=== PATIENT | male | born 1935 | race Caucasian/White ===

== ENCOUNTER 2018-11-12 19:38 | Emergency (ER) | payer MEDICARE ==
[~2018-11-12 19:38] MED LIST: ASPI-1197 PO; DIME50TA24 PO; INSREG SQ; LOSA100T58 PO; METR500T PO; NPH,100V11 SQ; OMEP20CA10 PO; SIMV40TA59 PO
[2018-11-12] MEDS ORDERED: SODIUM CHLORIDE 0.9% 500ML 500 ML IV ONE (19:56)
[2018-11-12] MEDS ORDERED: ONDANSETRON HCL 4 MG/2 ML VIAL ONE (19:56)
[2018-11-12 20:02] LABS: BASOPHILS % (AUTO) 0.5 % (0.0-5.0); EOSINOPHILS % (AUTO) 0.8 % (0.0-8.0); HEMATOCRIT 51.2 % (42-54); LYMPHOCYTES % (AUTO) 7.6 % (21.0-51.0); MEAN CORPUSCULAR HEMOGLOBIN 30.9 pg (27.0-33.0); MEAN CORPUSCULAR HGB CONC 34.3 g/dL (32.0-36.0); MEAN CORPUSCULAR VOLUME 90.2 fL (79-99); MONOCYTES % (AUTO) 7.8 % (3.0-13.0); NEUTROPHILS % (AUTO) 83.3 % (40.0-77.0); NUCLEATED RED BLOOD CELLS 0.1 % (0.0-0.19); PLATELET COUNT (AUTO) 191 K/uL (130-400); RED BLOOD CELL COUNT(AUTO) 5.68 MIL/uL (4.50-6.20); RED CELL DISTRIBUTION WIDTH 13.4 % (11.0-15.5)
[2018-11-12 20:12] LABS: CREATININE 1.3 mg/dL (0.5-1.5); POTASSIUM 3.7 mmol/L (3.5-5.1)
[2018-11-12 20:16] LABS: ALBUMIN 3.8 g/dL (3.5-5.0); BILIRUBIN,TOTAL 0.7 mg/dL (0.2-1.0)
[2018-11-12 21:38] LABS: APPEARANCE,URINE Clear (CLEAR); BILIRUBIN,URINE Negative (NEGATIVE); COLOR,URINE Yellow (YELLOW); GLUCOSE, URINE (UA) 250 mg/dL (NEGATIVE); KETONES,URINE Negative (NEGATIVE); LEUKOCYTE ESTERASE ,URINE Negative (NEGATIVE); NITRATE,URINE Negative (NEGATIVE); OCCULT BLOOD,URINE Negative (NEGATIVE); PH,URINE 5.5 (5.0-8.0); PROTEIN,URINE POS 2+ (NEGATIVE)
[2018-11-12 21:53] LABS: BACTERIA,URINE None Seen /HPF (None Seen); MUCUS,URINE Moderate LPF (None Seen); RBC,URINE None Seen /HPF (0-1); WBC,URINE None Seen /HPF (0-1)
== END 2018-11-12 23:29 | disposition home or self-care (01) ==
LOC: EDH 19:38
DX: R10.9 Unspecified abdominal pain (principal); R11.2 Nausea with vomiting, unspecified; E11.9 Type 2 diabetes mellitus without complications; Z85.46 Personal history of malignant neoplasm of prostate
CPT/HCPCS: 36415; 70450; 71045; 80053; 81001; 82150; 83690; 84484; 85025; 93005; 96374; 99284; J2405; J7040

== ENCOUNTER 2022-06-04 20:36 | Emergency (ER) | payer MEDICARE ==
[~2022-06-04] VITALS: Ht 172.7 cm; Wt 81.6 kg
[~2022-06-04 20:36] MED LIST changes: +ATOR40TA71 PO; +CARV6.25 PO; +CLOP75TA32 PO; +INSLAN SQ; -INSREG SQ; +INSU100V3 SQ; -LOSA100T58 PO; -METR500T PO; -NPH,100V11 SQ; -OMEP20CA10 PO; +OMEP20CA12 PO; -SIMV40TA59 PO
[2022-06-04 21:50] LABS: APPEARANCE,URINE TURBID (CLEAR); BILIRUBIN,URINE SMALL (NEGATIVE); COLOR,URINE RED (YELLOW); GLUCOSE, URINE (UA) 100 mg/dL (NEGATIVE); KETONES,URINE 5 mg/dL (NEGATIVE); LEUKOCYTE ESTERASE ,URINE MODERATE (NEGATIVE); NITRATE,URINE POSITIVE (NEGATIVE); OCCULT BLOOD,URINE MODERATE (NEGATIVE); PH,URINE 6.5 (5.0-8.0); PROTEIN,URINE >=300 mg/dL (NEGATIVE)
[2022-06-04 22:02] LABS: BACTERIA,URINE Rare /HPF (None Seen); RBC,URINE TNTC /HPF (0-1)
[2022-06-04 22:03] LABS: SQUAMOUS EPITHELIAL CELL,UR None Seen /HPF (0-2)
[2022-06-04 22:29] VITALS: BP 172/74
[2022-06-04] MEDS ORDERED: CEFTRIAXONE 1G VIAL IVP ONE (22:30)
[2022-06-04] MEDS ORDERED: LIDOCAINE HCL 1% 20 ML VIAL ONE (22:31)
[2022-06-05] MEDS ORDERED: LEVO750T68 PO ×2 (13:58)
== END 2022-06-04 23:19 | disposition home or self-care (01) ==
LOC: EDH 20:36
DX: T83.098A Other mechanical complication of other urinary catheter, initial encounter (principal); N39.0 Urinary tract infection, site not specified; R33.9 Retention of urine, unspecified; E11.9 Type 2 diabetes mellitus without complications; E78.00 Pure hypercholesterolemia, unspecified; I10 Essential (primary) hypertension; Z79.82 Long term (current) use of aspirin; Z79.899 Other long term (current) drug therapy; Z85.51 Personal history of malignant neoplasm of bladder; Z86.73 Personal history of transient ischemic attack (TIA), and cerebral infarction without residual deficits; Z87.440 Personal history of urinary (tract) infections; Z95.5 Presence of coronary angioplasty implant and graft; Y83.8 Other surgical procedures as the cause of abnormal reaction of the patient, or of later complication, without mention of misadventure at the time of the procedure; Y92.89 Other specified places as the place of occurrence of the external cause
CPT/HCPCS: 99284; 96374; 87088; 81001; 51702; J0696

== ENCOUNTER 2022-06-07 18:08 | Inpatient (IN) | payer MEDICARE ==
[~2022-06-07] VITALS: Ht 172.7 cm; Wt 80.8 kg
[~2022-06-07 18:08] MED LIST changes: +LEVO750T68 PO
[2022-06-07] MEDS: 0.9%NACL 1000ML 1,000 ML IV SCH (19:39)
[2022-06-07] MEDS: CEFTRIAXONE 1G VIAL IVP SCH (19:39)
[2022-06-07] MEDS ORDERED: UMECLIDINIUM ×2 (20:28)
[2022-06-07] MEDS ORDERED: LISI10TA24 PO ×2 (20:28)
[2022-06-07] MEDS ORDERED: VILANTEROL ×2 (20:28)
[2022-06-07] MEDS ORDERED: ROSU10TA28 PO ×2 (20:28)
[2022-06-07] MEDS ORDERED: ALBUTEROL SULFATE ×2 (20:28)
[2022-06-07] MEDS ORDERED: VITAMIN C PO ×2 (20:28)
[2022-06-07] MEDS ORDERED: FLUTICASONE FUROATE ×2 (20:28)
[2022-06-07] MEDS ORDERED: PHEN-948 PO ×2 (20:28)
[2022-06-07] MEDS ORDERED: CYAN250010 PO ×2 (20:28)
[2022-06-07] MEDS ORDERED: ISOS30TA92 PO ×2 (20:28)
[2022-06-07] MEDS ORDERED: VITAMIN D PO ×2 (20:28)
[2022-06-08] VITALS (32 sets, daily range): BP systolic 134–185; BP diastolic 55–125
[2022-06-08] MEDS: 0.9%NACL 1000ML 1,000 ML IV SCH ×2 (04:28→14:30)
[2022-06-08] MEDS ORDERED: FENTANYL CITRATE PF 50 MCG/1 ML 2ML VIAL ONE ×3 (19:38→21:34)
[2022-06-08] MEDS ORDERED: PROPOFOL 10 MG/ML 20ML VIAL IV ONE (19:38)
[2022-06-08] MEDS ORDERED: ROCURONIUM 10MG/1ML SYR 10 MG/ML ML ONE (19:50)
[2022-06-08] MEDS ORDERED: PHENYLEPHRINE HCL 10 MG/ML 1ML VIAL IV ONE ×2 (20:12→20:13)
[2022-06-08] MEDS: CEFTRIAXONE 1G VIAL IVP SCH ×2 (20:14→23:13)
[2022-06-08] MEDS ORDERED: ONDANSETRON 4MG INJ ONE ×2 (20:25→22:19)
[2022-06-08] MEDS ORDERED: GLYCOPYRROLATE 1 MG/5 ML SYRINGE ONE ×2 (20:49→22:09)
[2022-06-08] MEDS ORDERED: NEOSTIGMINE 5MG/5ML SYR IV ONE (20:49)
[2022-06-08] MEDS ORDERED: MORPHINE 2 MG SYG ONE ×2 (20:57→21:04)
[2022-06-08] MEDS ORDERED: HYDROMORPHONE 1 MG INJ ONE (21:14)
[2022-06-08] MEDS ORDERED: OPIUM/BELLADONNA ALKALOIDS 1 EACH SUPP.RECT RC ONE (21:22)
[2022-06-08] MEDS ORDERED: OPIUM/BELLADONNA ALKALOIDS 1 EACH SUPP.RECT RC PRN ×2 (21:35→23:30)
[2022-06-08] MEDS ORDERED: MIDAZOLAM HCL 1 MG/ML 2ML VIAL ONE (21:49)
[2022-06-08] MEDS ORDERED: LACTATED RINGERS 1000ML 1,000 ML IV ONE (23:10)
[2022-06-08] MEDS: LACTATED RINGERS 1000ML 1,000 ML IV SCH (23:30)
[2022-06-08] MEDS ORDERED: HYDROCODONE/ACETAMINOPHEN 5/325 MG TAB PO PRN (23:30)
[2022-06-09] VITALS (10 sets, daily range): BP systolic 111–174; BP diastolic 50–86
[2022-06-09] MEDS ORDERED: BACITRACIN 1 EACH PACKET TP ONE
[2022-06-09] MEDS ORDERED: INSLAN SQ ×2 (00:18)
[2022-06-09 05:31] LABS: MEAN CORPUSCULAR HEMOGLOBIN 27.9 pg (27.0-33.0); MEAN CORPUSCULAR HGB CONC 31.6 g/dL (32.0-36.0); MEAN CORPUSCULAR VOLUME 88.3 fL (79-99); RED BLOOD CELL COUNT(AUTO) 4.87 MIL/uL (4.50-6.20); WHITE BLOOD COUNT (AUTO) 7.7 K/uL (4.8-10.8)
[2022-06-09 05:51] LABS: ALBUMIN 2.5 g/dL (3.5-5.0); CREATININE 1.1 mg/dL (0.5-1.5); POTASSIUM 4.3 mmol/L (3.5-5.1)
[2022-06-09] MEDS: BACITRACIN 1 EACH PACKET TP SCH ×2 (09:00→22:43)
[2022-06-09 13:01] LABS: HEMATOCRIT 41.4 % (42-54); MEAN CORPUSCULAR HEMOGLOBIN 28.1 pg (27.0-33.0); MEAN CORPUSCULAR HGB CONC 32.6 g/dL (32.0-36.0); MEAN CORPUSCULAR VOLUME 86.3 fL (79-99); PLATELET COUNT (AUTO) 239 K/uL (130-400); RED CELL DISTRIBUTION WIDTH 13.9 % (11.0-15.5)
[2022-06-09 13:44] LABS: BASOPHILS % (MANUAL) 1 % (0-2); EOSINOPHILS % (MANUAL) 5 % (1-6); LYMPHOCYTES % (MANUAL) 14 % (22-44); MONOCYTES % (MANUAL) 11 % (2-9); REACTIVE LYMPHOCYTES 3 % (0-0); SEGMENTED NEUTROPHILS % 66 % (40-70)
[2022-06-09 13:45] LABS: PLATELET MORPHOLOGY COMMENT ADEQUATE
[2022-06-09] MEDS: CEFTRIAXONE 1G VIAL IVP SCH (17:53)
[2022-06-09] MEDS ORDERED: INSULIN GLARGINE 100 UNITS/ML 10 ML VIAL SQ SCH (21:00)
[2022-06-09] MEDS: CARVEDILOL 6.25 MG TABLET PO SCH (22:42)
[2022-06-09] MEDS: INSULIN HUMULIN R 100 UNIT/ML 3ML SQ SCH (22:45)
[2022-06-10 00:09] VITALS: BP 156/68
[2022-06-10 04:00] VITALS: BP 129/63
[2022-06-10] MEDS: INSULIN HUMULIN R 100 UNIT/ML 3ML SQ SCH ×3 (06:58→15:56)
[2022-06-10 07:40] VITALS: BP 147/75
[2022-06-10] MEDS: LACTATED RINGERS 1000ML 1,000 ML IV SCH (08:50)
[2022-06-10] MEDS ORDERED: ATORVASTATIN 20 MG TABLET PO SCH (09:00)
[2022-06-10] MEDS ORDERED: ISOSORBIDE MONO 30MG SR TAB PO SCH (09:00)
[2022-06-10] MEDS ORDERED: LISINOPRIL 10 MG TABLET PO SCH (09:00)
[2022-06-10] MEDS ORDERED: CYANOCOBALAMIN (VITAMIN B-12) 1,000 MCG TABLET PO SCH (09:00)
[2022-06-10] MEDS: BACITRACIN 1 EACH PACKET TP SCH (09:26)
[2022-06-10] MEDS: CARVEDILOL 6.25 MG TABLET PO SCH (09:26)
[2022-06-10 11:45] VITALS: BP 127/57
[2022-06-10 15:40] VITALS: BP 108/66
== END 2022-06-10 19:45 | DRG 670 ==
LOC: EDH 18:08 → EDHIP 18:16 → 3DH 23:39 → 4BH 06-10 07:38
PROVIDERS: ADMIT Internal Medicine Hematology & Oncology; ATTEND Internal Medicine Hematology & Oncology
PROC: 0TBB8ZZ Excision of Bladder, Via Natural or Artificial Opening Endoscopic (ICD-10-PCS; principal; 2022-06-08 19:54)
DX: N30.81 Other cystitis with hematuria (principal); C67.9 Malignant neoplasm of bladder, unspecified; E11.22 Type 2 diabetes mellitus with diabetic chronic kidney disease; Z20.822 Contact with and (suspected) exposure to COVID-19; E78.5 Hyperlipidemia, unspecified; F03.90 Unspecified dementia, unspecified severity, without behavioral disturbance, psychotic disturbance, mood disturbance, and anxiety; I12.9 Hypertensive chronic kidney disease with stage 1 through stage 4 chronic kidney disease, or unspecified chronic kidney disease; N18.9 Chronic kidney disease, unspecified; N40.0 Benign prostatic hyperplasia without lower urinary tract symptoms; K21.9 Gastro-esophageal reflux disease without esophagitis; Z63.4 Disappearance and death of family member; Z85.46 Personal history of malignant neoplasm of prostate; Z79.02 Long term (current) use of antithrombotics/antiplatelets; Z79.4 Long term (current) use of insulin; Z79.82 Long term (current) use of aspirin; Z79.899 Other long term (current) drug therapy; Z83.3 Family history of diabetes mellitus; Z85.51 Personal history of malignant neoplasm of bladder; Z92.3 Personal history of irradiation
CPT/HCPCS: 36415; 51700; 74176; 80053; 81001; 82948; 85025; 85027; 87635; 93005; 96374; 97039; A4354; G0378; J0696; J1170; J1815; J1885; J2250; J2370; J2405; J2704; J2710; J3010; J3490; J7030; J7120

== ENCOUNTER 2022-06-29 23:00 | Emergency (ER) | payer MEDICARE ==
[~2022-06-29] VITALS: Ht 172.7 cm; Wt 81.2 kg
[~2022-06-29 23:00] MED LIST changes: +ALBUTEROL SULFATE; -ASPI-1197 PO; -CLOP75TA32 PO; +CYAN250010 PO; -DIME50TA24 PO; +FLUTICASONE FUROATE; +ISOS30TA92 PO; +LISI10TA24 PO; +ROSU10TA28 PO; +UMECLIDINIUM; +VILANTEROL; +VITAMIN C PO; +VITAMIN D PO
[2022-06-30 00:41] LABS: BASOPHILS % (AUTO) 0.5 % (0.0-5.0); EOSINOPHILS % (AUTO) 2.5 % (0.0-8.0); HEMATOCRIT 36.6 % (42-54); LYMPHOCYTES % (AUTO) 16.4 % (21.0-51.0); MEAN CORPUSCULAR HEMOGLOBIN 27.9 pg (27.0-33.0); MEAN CORPUSCULAR HGB CONC 34.2 g/dL (32.0-36.0); MEAN CORPUSCULAR VOLUME 81.7 fL (79-99); MONOCYTES % (AUTO) 8.6 % (3.0-13.0); NEUTROPHILS % (AUTO) 71.8 % (40.0-77.0); PLATELET COUNT (AUTO) 314 K/uL (130-400); RED BLOOD CELL COUNT(AUTO) 4.48 MIL/uL (4.50-6.20); RED CELL DISTRIBUTION WIDTH 14.1 % (11.0-15.5); WHITE BLOOD COUNT (AUTO) 8.3 K/uL (4.8-10.8)
[2022-06-30 00:44] LABS: INR 1.05 (0.85-1.15); PROTHROMBIN TIME 11.4 SEC (9.6-11.6)
[2022-06-30 00:45] LABS: PARTIAL THROMBOPLASTIN TIME 29.6 SEC (26.3-35.5)
[2022-06-30 00:48] LABS: CREATININE 1.3 mg/dL (0.5-1.5); POTASSIUM 3.9 mmol/L (3.5-5.1)
[2022-06-30 01:07] VITALS: BP 134/74
== END 2022-06-30 01:37 | disposition home or self-care (01) ==
LOC: EDH 23:00
DX: R33.9 Retention of urine, unspecified (principal); E11.9 Type 2 diabetes mellitus without complications; E78.00 Pure hypercholesterolemia, unspecified; I10 Essential (primary) hypertension; I25.10 Atherosclerotic heart disease of native coronary artery without angina pectoris; Z79.899 Other long term (current) drug therapy; Z95.5 Presence of coronary angioplasty implant and graft
CPT/HCPCS: 36415; 51702; 80048; 85025; 85610; 85730

== ENCOUNTER 2023-06-14 07:24 | Day surgery (SDC) | payer MEDICARE ==
[2023-06-12 12:04] VITALS: BP 144/73; PULSE 78; RESP 15
[2023-06-12 12:33] LABS: BASOPHILS # (AUTO) 0.08 K/uL (0.00-0.20); BASOPHILS % (AUTO) 0.7 % (0.0-5.0); EOSINOPHILS # (AUTO) 0.44 K/uL (0.00-0.70); EOSINOPHILS % (AUTO) 4.1 % (0.0-8.0); HEMATOCRIT 43.7 % (42-54); IMMATURE GRANULOCYTE ABSOLUTE 0.04 K/uL (0-1); LYMPHOCYTES # (AUTO) 1.6 K/uL (1.0-4.8); LYMPHOCYTES % (AUTO) 14.7 % (21.0-51.0); MEAN CORPUSCULAR HEMOGLOBIN 26.2 pg (27.0-33.0); MEAN CORPUSCULAR HGB CONC 31.1 g/dL (32.0-36.0); MEAN CORPUSCULAR VOLUME 84.2 fL (79-99); MONOCYTES # (AUTO) 0.9 K/uL (0.1-1.0); MONOCYTES % (AUTO) 8.5 % (3.0-13.0); NEUTROPHILS # (AUTO) 7.8 K/uL (1.8-7.7); NEUTROPHILS % (AUTO) 71.6 % (40.0-77.0); PLATELET COUNT (AUTO) 431 K/uL (130-400); RED BLOOD CELL COUNT(AUTO) 5.19 MIL/uL (4.50-6.20); RED CELL DISTRIBUTION WIDTH 14.7 % (11.0-15.5); WHITE BLOOD COUNT (AUTO) 10.8 K/uL (4.8-10.8)
[2023-06-12 12:43] LABS: CREATININE 1.3 mg/dL (0.5-1.5); POTASSIUM 3.8 mmol/L (3.5-5.1); PROTHROMBIN TIME 11.6 SEC (9.6-11.6)
[2023-06-12 12:45] LABS: PARTIAL THROMBOPLASTIN TIME 35.9 SEC (26.3-35.5)
[2023-06-12 13:33] LABS: BILIRUBIN,URINE MODERATE mg/dL (NEGATIVE); GLUCOSE, URINE (UA) 250 mg/dL (NEGATIVE); KETONES,URINE 5 mg/dL (NEGATIVE); LEUKOCYTE ESTERASE ,URINE NEGATIVE Leu/uL (NEGATIVE); NITRATE,URINE POSITIVE (NEGATIVE); OCCULT BLOOD,URINE LARGE (NEGATIVE); PROTEIN,URINE >=300 mg/dL (NEGATIVE); UROBILINOGEN,URINE >=8.0 mg/dL (0.2-1.0)
[2023-06-12 13:46] LABS: ADD UA MICROSCOPIC YES; APPEARANCE,URINE CLOUDY (CLEAR); COLOR,URINE RED (YELLOW)
[2023-06-12 13:48] LABS: RBC,URINE 51-100 /HPF (0-1)
[2023-06-12 13:49] LABS: BACTERIA,URINE Moderate /HPF (None Seen); SQUAMOUS EPITHELIAL CELL,UR Rare /HPF (0-2)
[~2023-06-14] VITALS: Ht 172.7 cm; Wt 72.1 kg
[2023-06-14] VITALS (17 sets, daily range): BP systolic 108–190; BP diastolic 47–94; PULSE 55–89; RESP 14–19
[~2023-06-14 07:24] MED LIST changes: +ACET-66 PO; -ALBUTEROL SULFATE; +ASPI-1197 PO; +CARV3.12 PO; -CARV6.25 PO; +CLOP75TA32 PO; -CYAN250010 PO; -FLUTICASONE FUROATE; -INSLAN SQ; -INSU100V3 SQ; -ISOS30TA92 PO; -LEVO750T68 PO; -LISI10TA24 PO; +OXYB10TA30 PO; +PHEN-948 PO; -ROSU10TA28 PO; +TAMS-1 PO; -UMECLIDINIUM; -VILANTEROL; -VITAMIN C PO; -VITAMIN D PO
[2023-06-14] MEDS ORDERED: CEFTRIAXONE 1G VIAL ONE (07:41)
[2023-06-14] MEDS ORDERED: 0.9%NACL 1000ML 1,000 ML IV ONE (07:41)
[2023-06-14] MEDS ORDERED: LIDOCAINE PF 100MG/5ML (2%) SYRINGE 5ML ONE (10:18)
[2023-06-14] MEDS ORDERED: PROPOFOL 10 MG/ML 20ML VIAL IV ONE (10:18)
[2023-06-14] MEDS ORDERED: DEXAMETHASONE SOD PHOSPHATE 10MG/ML 1ML VIAL ONE (10:18)
[2023-06-14] MEDS ORDERED: GLYCOPYRROLATE 1 MG/5 ML SYRINGE ONE (10:18)
[2023-06-14] MEDS ORDERED: SUCCINYLCHOLINE 200MG/10ML SYR ONE (10:18)
[2023-06-14] MEDS ORDERED: NEOSTIGMINE 5MG/5ML SYR IV ONE (10:19)
[2023-06-14] MEDS ORDERED: FENTANYL CITRATE PF 50 MCG/1 ML 2ML VIAL ONE (10:19)
[2023-06-14] MEDS ORDERED: ROCURONIUM 10MG/1ML SYR 10 MG/ML ML ONE (10:19)
[2023-06-14] MEDS ORDERED: INSLAN SQ (10:32)
[2023-06-14] MEDS ORDERED: LEVO-70 PO (10:32)
[2023-06-14] MEDS ORDERED: INSU100V3 SQ (10:32)
[2023-06-14] MEDS ORDERED: SUGAMMADEX SODIUM 200 MG/2 ML VIAL IV ONE (11:19)
[2023-06-14] MEDS ORDERED: MEPERIDINE-PF 25 MG/ML SYG ONE (11:36)
[2023-06-14] MEDS ORDERED: HYDRALAZINE 20MG/ML VIAL ONE (11:42)
== END 2023-06-14 13:00 | disposition home or self-care (01) ==
LOC: DAH 07:24
PROVIDERS: ATTEND Urology
DX: C67.4 Malignant neoplasm of posterior wall of bladder (principal); N35.919 Unspecified urethral stricture, male, unspecified site; C67.0 Malignant neoplasm of trigone of bladder; I10 Essential (primary) hypertension; E11.9 Type 2 diabetes mellitus without complications; I25.10 Atherosclerotic heart disease of native coronary artery without angina pectoris; Z79.899 Other long term (current) drug therapy; Z98.890 Other specified postprocedural states; Z79.01 Long term (current) use of anticoagulants; Z72.89 Other problems related to lifestyle; Z79.82 Long term (current) use of aspirin; Z95.5 Presence of coronary angioplasty implant and graft
CPT/HCPCS: 80048; 85025; 85610; 85730; 87088; 81001; 36415; 71045; 93005; 52240; 82948 ×2; 88309; 88342; 88341; A6260; A4663; J7030 ×2; A4346; A4354; J3010; J0330; J3490; J1100; J2710; J2001; J0360; J0696; J2704; J2175; A4358; A4215; A4223; A4222; A4221; A4600

== ENCOUNTER 2023-10-24 11:30 | Day surgery (SDC) | payer MEDICARE ==
[2023-10-22 09:22] LABS: BASOPHILS # (AUTO) 0.06 K/uL (0.00-0.20); BASOPHILS % (AUTO) 0.7 % (0.0-5.0); EOSINOPHILS # (AUTO) 0.32 K/uL (0.00-0.70); EOSINOPHILS % (AUTO) 3.9 % (0.0-8.0); HEMATOCRIT 37.8 % (42-54); IMMATURE GRANULOCYTE ABSOLUTE 0.05 K/uL (0-1); LYMPHOCYTES # (AUTO) 1.4 K/uL (1.0-4.8); LYMPHOCYTES % (AUTO) 17.5 % (21.0-51.0); MEAN CORPUSCULAR HEMOGLOBIN 26.8 pg (27.0-33.0); MEAN CORPUSCULAR HGB CONC 30.4 g/dL (32.0-36.0); MEAN CORPUSCULAR VOLUME 88.1 fL (79-99); MONOCYTES # (AUTO) 0.7 K/uL (0.1-1.0); MONOCYTES % (AUTO) 8.8 % (3.0-13.0); NEUTROPHILS # (AUTO) 5.6 K/uL (1.8-7.7); NEUTROPHILS % (AUTO) 68.5 % (40.0-77.0); PLATELET COUNT (AUTO) 368 K/uL (130-400); RED BLOOD CELL COUNT(AUTO) 4.29 MIL/uL (4.50-6.20); RED CELL DISTRIBUTION WIDTH 14.2 % (11.0-15.5); WHITE BLOOD COUNT (AUTO) 8.1 K/uL (4.8-10.8)
[2023-10-22 09:34] LABS: CREATININE 1.1 mg/dL (0.5-1.5); POTASSIUM 4.1 mmol/L (3.5-5.1)
[2023-10-22 09:35] LABS: INR 1.04 (0.85-1.15)
[2023-10-22 09:36] LABS: PARTIAL THROMBOPLASTIN TIME 35.3 SEC (26.3-35.5)
[2023-10-22 09:59] VITALS: BP 165/78; PULSE 73; RESP 16
[2023-10-22 09:59] LABS: APPEARANCE,URINE CLOUDY (CLEAR); BILIRUBIN,URINE NEGATIVE (NEGATIVE); COLOR,URINE LIGHT-ORANGE (YELLOW); GLUCOSE, URINE (UA) NEGATIVE (NEGATIVE); KETONES,URINE NEGATIVE (NEGATIVE); LEUKOCYTE ESTERASE ,URINE 250 Leu/uL (NEGATIVE); NITRATE,URINE NEGATIVE (NEGATIVE); OCCULT BLOOD,URINE LARGE (NEGATIVE); PROTEIN,URINE 200 mg/dL (NEGATIVE); UROBILINOGEN,URINE 0.2 mg/dL (0.2-1.0)
[2023-10-22 11:05] LABS: ADD UA MICROSCOPIC YES
[2023-10-22 11:12] LABS: BACTERIA,URINE FEW /HPF (None Seen); MUCUS,URINE RARE LPF (None Seen); RBC,URINE TNTC /HPF (0-1); WBC,URINE >100 /HPF (0-1)
[~2023-10-24] VITALS: Ht 172.7 cm; Wt 71.9 kg
[~2023-10-24 11:30] MED LIST changes: +DIME50TA24 PO; +INSLAN SQ; +INSU100V3 SQ; +LEVO-70 PO; +MECL-302 PO; -PHEN-948 PO; +[UNRECOGNIZED DRUG - CODE] TP
[2023-10-24 11:40] VITALS: BP 133/73; PULSE 88; RESP 17
[2023-10-24] MEDS ORDERED: 0.9%NACL 1000ML 1,000 ML IV ONE (12:13)
[2023-10-24] MEDS ORDERED: LIDOCAINE HCL 1% MDV 50ML VIAL ONE (15:31)
[2023-10-24] MEDS ORDERED: IODIXANOL 320 MG/ML 100 ML VIAL ONE (15:31)
[2023-10-24 16:35] VITALS: BP 148/60; PULSE 67; RESP 14
[2023-10-24 16:50] VITALS: BP 152/66; PULSE 67; RESP 14
[2023-10-24 17:05] VITALS: BP 147/67; PULSE 69; RESP 14
[2023-10-24 17:20] VITALS: BP 151/71; PULSE 70; RESP 14
== END 2023-10-24 17:30 | disposition home or self-care (01) ==
LOC: DAH 11:30
PROVIDERS: ATTEND Urology
DX: N13.5 Crossing vessel and stricture of ureter without hydronephrosis (principal); I10 Essential (primary) hypertension; I44.0 Atrioventricular block, first degree; I25.2 Old myocardial infarction; Z79.01 Long term (current) use of anticoagulants; Z79.899 Other long term (current) drug therapy; Z79.82 Long term (current) use of aspirin; Z79.4 Long term (current) use of insulin; Z98.890 Other specified postprocedural states
CPT/HCPCS: 80048; 85025; 85610; 85730; 87088; 81001; 36415; 93005; 50435; 82948; A6260; C1769 ×2; C1729; A4663; J7030; J1644; J3490; Q9967; A4215; A4223; A4222; A4221; 75984

== ENCOUNTER 2024-02-06 09:22 | Observation (INO) | payer MEDICARE ==
[~2024-02-06] VITALS: Ht 172.7 cm; Wt 66.0 kg
[2024-02-06 09:44] LABS: BASOPHILS # (AUTO) 0.07 K/uL (0.00-0.20); BASOPHILS % (AUTO) 0.7 % (0.0-5.0); EOSINOPHILS # (AUTO) 0.17 K/uL (0.00-0.70); EOSINOPHILS % (AUTO) 1.6 % (0.0-8.0); HEMATOCRIT 34.7 % (42-54); IMMATURE GRANULOCYTE ABSOLUTE 0.05 K/uL (0-1); LYMPHOCYTES # (AUTO) 1.3 K/uL (1.0-4.8); LYMPHOCYTES % (AUTO) 11.9 % (21.0-51.0); MEAN CORPUSCULAR HEMOGLOBIN 24.5 pg (27.0-33.0); MEAN CORPUSCULAR HGB CONC 31.4 g/dL (32.0-36.0); MONOCYTES # (AUTO) 0.7 K/uL (0.1-1.0); NEUTROPHILS # (AUTO) 8.3 K/uL (1.8-7.7); NEUTROPHILS % (AUTO) 78.3 % (40.0-77.0); PLATELET COUNT (AUTO) 482 K/uL (130-400); RED BLOOD CELL COUNT(AUTO) 4.45 MIL/uL (4.50-6.20); RED CELL DISTRIBUTION WIDTH 16.5 % (11.0-15.5); WHITE BLOOD COUNT (AUTO) 10.6 K/uL (4.8-10.8)
[2024-02-06 09:55] LABS: CREATININE 2.1 mg/dL (0.5-1.3); POTASSIUM 3.8 mmol/L (3.5-5.1)
[2024-02-06 09:59] LABS: ALBUMIN 2.3 g/dL (3.5-5.0); BILIRUBIN,TOTAL 0.4 mg/dL (0.2-1.0); MAGNESIUM 1.4 mg/dL (1.80-2.40); TOTAL PROTEIN, SERUM 7.3 g/dL (6.0-8.3)
[2024-02-06 10:55] LABS: B-TYPE NATRIURETIC PEPTIDE 903 pg/mL (0-100)
[2024-02-06 12:45] LABS: APPEARANCE,URINE CLOUDY (CLEAR); BILIRUBIN,URINE NEGATIVE (NEGATIVE); COLOR,URINE LIGHT-YELLOW (YELLOW); GLUCOSE, URINE (UA) NEGATIVE (NEGATIVE); KETONES,URINE NEGATIVE (NEGATIVE); LEUKOCYTE ESTERASE ,URINE 500 Leu/uL (NEGATIVE); NITRATE,URINE NEGATIVE (NEGATIVE); OCCULT BLOOD,URINE SMALL (NEGATIVE); PH,URINE 5.5 (5.0-8.0); PROTEIN,URINE 100 mg/dL (NEGATIVE); UROBILINOGEN,URINE 0.2 mg/dL (0.2-1.0)
[2024-02-06 12:47] LABS: ADD UA MICROSCOPIC YES
[2024-02-06 12:50] LABS: BACTERIA,URINE RARE /HPF (None Seen); MUCUS,URINE RARE LPF (None Seen); SQUAMOUS EPITHELIAL CELL,UR RARE /HPF (0-2); WBC,URINE 26-50 /HPF (0-1)
[2024-02-06] MEDS: FUROSEMIDE 20MG VIAL IV SCH (13:55)
[2024-02-06 21:45] VITALS: BP 153/71; PULSE 84; RESP 20; O2SAT 97
[2024-02-07] VITALS: BP 125/62; PULSE 74; RESP 18
[2024-02-07 04:00] VITALS: BP 133/66; PULSE 72; RESP 18
[2024-02-07 08:00] VITALS: O2SAT 99
[2024-02-07 08:24] VITALS: BP 149/83; PULSE 92; RESP 19
[2024-02-07 11:46] VITALS: BP 148/76; PULSE 90; RESP 17
== END 2024-02-07 15:10 | disposition home or self-care (01) ==
LOC: EDH 09:22 → EDHIP 13:09 → INTOOBSV 13:09 → 4DH 21:45
PROVIDERS: ADMIT Internal Medicine Hematology & Oncology; ATTEND Internal Medicine Hematology & Oncology
DX: I11.0 Hypertensive heart disease with heart failure (principal); I50.9 Heart failure, unspecified; E11.9 Type 2 diabetes mellitus without complications; I25.10 Atherosclerotic heart disease of native coronary artery without angina pectoris; C67.9 Malignant neoplasm of bladder, unspecified; Z79.899 Other long term (current) drug therapy
CPT/HCPCS: 99285; 96374; 71045; 96376 ×2; 83735; 84484; 80053; 83880; 85025; 87088; 81001; 36415; 93005; J1940 ×4; G0378